=== PATIENT | female | born 1985 ===

== ENCOUNTER 2018-10-11 19:04 | Emergency (ER) | payer OTHER ==
--- NOTE | 2018-10-11 20:56 | ER Document Report ---
ED General - General Chief Complaint: Seizure Stated Complaint: SEIZURE Time Seen by Provider: 10/11/18 20:30 Notes: Patient is a 33-year-old female with past medical history of anxiety, depression, history of 3-4 times daily episodes of tonic-clonic events without a postictal phase that have never been formally diagnosed as epilepsy nor PNES, who presents after having 1 of her episodes. The patient states that she apparently lost consciousness, had a whole body shaking episode that lasted approximately 30 seconds. Her did witness this episode. States that she woke up and was immediately at baseline which is her usual. She typically has anywhere between 1 and 4 of these episodes daily and there almost always prompted via stress or arguing. Her symptoms do resolve spontaneously. She has never had one while driving, and water or any other dangerous situation. She has been having these for the past 16 years, was seeing a physician in the [place] who has prescribed her Topamax and she has been continued on this medication while here in the [place]. The patient has had an EEG and MRI both of which were normal. She does not currently follow with a neurologist in the [facility]. She currently denies any symptoms of any kind. TRAVEL OUTSIDE OF THE [place] IN LAST 30 DAYS: No - Related Data Allergies/Adverse Reactions: No Known Allergies Allergy (Unverified 10/11/18 19:10) Past Medical History - General Information source: Patient, Relative - Social History Smoking Status: Never Smoker Frequency of alcohol use: None Drug Abuse: None Lives with: Spouse/Significant other Family History: Reviewed & Not Pertinent Patient has suicidal ideation: No Patient has homicidal ideation: No Renal/ Medical History: Denies: Hx Peritoneal Dialysis Review of Systems - Review of Systems Notes: Constitutional: Negative for fever. HENT: Negative for sore throat. Eyes: Negative for visual changes. Cardiovascular: Negative for chest pain. Respiratory: Negative for shortness of breath. Gastrointestinal: Negative for abdominal pain, vomiting or diarrhea. Genitourinary: Negative for dysuria. Musculoskeletal: Negative for back pain. Skin: Negative for rash. Neurological: Negative for headaches, weakness or numbness. 10 point ROS negative except as marked above and in HPI. Physical Exam - Vital signs Vitals: Temp Pulse Resp BP Pulse Ox 98.5 F 97 16 101/68 100 10/11/18 19:30 10/11/18 19:30 10/11/18 19:30 10/11/18 19:30 10/11/18 19:30 Interpretation: Normal Notes: PHYSICAL EXAMINATION: GENERAL: Well-appearing, well-nourished and in no acute distress. HEAD: Atraumatic, normocephalic. EYES: Pupils equal round and reactive to light, extraocular movements intact, sclera anicteric, conjunctiva are normal. ENT: nares patent, oropharynx clear without exudates. Moist mucous membranes. NECK: Normal range of motion, supple without lymphadenopathy LUNGS: Breath sounds clear to auscultation bilaterally and equal. No wheezes rales or rhonchi. HEART: Regular rate and rhythm without murmurs ABDOMEN: Soft, nontender, normoactive bowel sounds. No guarding, no rebound. No masses appreciated. EXTREMITIES: Normal range of motion, no pitting or edema. No cyanosis. NEUROLOGICAL: Face symmetric. Tongue protrudes midline. Extraocular motions intact. Pupils are 2 mm and equally reactive. Normal speech, normal gait. 5 out of 5 strength in both the distal and proximal upper and lower extremities bilaterally. Sensation is grossly intact throughout. Finger to nose testing normal. Pronator drift normal. PSYCH: Normal mood, normal affect. SKIN: Warm, Dry, normal turgor, no rashes or lesions noted. 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 Clinical history is inconsistent with an epileptic seizure and I do not believe any imaging or labs as indicated. Neurologic exam unremarkable without any focal neurologic deficits. No trauma sustained during today's episode. The patient does have a history of similar episodes in the past as well as a psychiatric history.At this time will discharge with return precautions and follow-up recommendations. Verbal discharge instructions given a the bedside and opportunity for questions given. Medication warnings reviewed. Patient is in agreement with this plan and has verbalized understanding of return precautions and the need for primary care follow-up in the next 24-72 hours. - Vital Signs Vital signs: Temp Pulse Resp BP Pulse Ox 98.6 F 97 14 101/76 100 10/11/18 21:01 10/11/18 19:30 10/11/18 21:01 10/11/18 21:01 10/11/18 21:01 Discharge - Discharge Clinical Impression: Pseudoseizure, Anxiety Condition: Good Disposition: HOME, SELF-CARE Additional Instructions: Your episode of shaking today was likely due to something called PNES, also known as pseudogenic non-epileptiform seizures. These are often also often referred to as pseudoseizures. These are not voluntary. However, they are not coming from an abnormal focus in your brain like somebody who has true epilepsy. These episodes can often be triggered by stress, anxiety, or not taking your normal medications. Please follow-up with your primary care doctor at your earliest ability. Return for any additional concerns you may have including if you develop a fever, nausea, vomiting, pass out, have focal weakness or numbness, or any other symptoms that are concerning to you. Referrals: DEWEY DORADO MD [Primary Care Provider] - Follow up as needed
[2018-10-11 21:40] VITALS: BP 101/76
== END 2018-10-11 21:20 | disposition home or self-care (01) ==
LOC: ER 19:04
DX: R56.9 Unspecified convulsions (principal); F41.9 Anxiety disorder, unspecified; F32.9 Major depressive disorder, single episode, unspecified
CPT/HCPCS: 99284